=== PATIENT | male | born 1945 | race American Indian/Alaskan Native ===

== ENCOUNTER 2019-05-08 19:08 | Emergency (ER) | payer OTHER ==
[~2019-05-08] VITALS: Ht 175.3 cm; Wt 90.7 kg
[~2019-05-08 19:08] MED LIST: ASPI81CH PO; ATEN50 PO; ATOR20 PO; CLOP75 PO; GLIP2.5ER PO; METF850 PO; TAMS.4ER PO; TRAM50 PO
[2019-05-08 19:43] LABS: BASOPHILS ABSOLUTE AUTO 0.03 K/mm3 (0.00-0.23); BASOPHILS PERCENT AUTO 0 % (0-2); EOSINOPHILS ABSOLUTE AUTO 0.19 K/mm3 (0.00-0.68); EOSINOPHILS PERCENT AUTO 3 % (0-6); Hematocrit 25.3 % (37.0-53.0); Hemoglobin 8.1 g/dL (13.5-17.5); IMMATURE GRAN ABSOLUTE AUTO 0.07 K/mm3 (0.00-0.10); IMMATURE GRAN PERCENT AUTO 1 % (0-1); LYMPHOCYTES ABSOLUTE AUTO 2.01 K/mm3 (0.84-5.20); LYMPHOCYTES PERCENT AUTO 27 % (21-46); MONOCYTES ABSOLUTE AUTO 0.51 K/mm3 (0.16-1.47); MONOCYTES PERCENT AUTO 7 % (4-13); Mean Corpuscular HGB 36.3 pg (26.0-34.0); Mean Corpuscular Volume 114 fL (80-100); Mean Platelet Volume 10.5 fL (9.1-12.4); NEUTROPHILS ABSOLUTE AUTO 4.58 K/mm3 (1.96-9.15); NEUTROPHILS PERCENT AUTO 62 % (41-73); NRBC ABSOLUTE 0.05 K/mm3 (0.00-0.02); NRBC Auto 0.7 /100 WBC (0.0-0.2); Platelet Count 305 K/mm3 (150-400); RDW Standard Deviation 65.2 fL (35.1-46.3); Red Blood Cell Count 2.23 M/mm3 (4.30-5.90); White Blood Cell Count 7.39 K/mm3 (4.00-11.30)
[2019-05-08 19:57] LABS: Alanine Aminotransfer (ALT/SGP 69 U/L (12-78); Albumin, Blood 3.6 g/dL (3.4-5.0); Alk Phos 67 U/L (50-136); Anion Gap 7 mmol/L (6-16); Aspartate Aminotrans (AST/SGOT 62 U/L (12-37); Bilirubin, Total 0.2 mg/dL (0.1-1.0); Blood Urea Nitrogen 34 mg/dL (8-24); Bun/Creatinine Ratio 23.9 (12.0-20.0); CO2, Blood 28 mmol/L (21-32); Calcium, Blood 8.7 mg/dL (8.5-10.1); Chloride, Blood 104 mmol/L (98-108); Creatinine, Blood 1.42 mg/dL (0.60-1.20); Globulin, Blood 3.5 g/dL (2.2-4.0); Glomerular Filtration Rate 52 (60-); Glucose, Blood 117 mg/dL (70-99); Sodium, Blood 139 mmol/L (136-145); Total Protein, Blood 7.1 g/dL (6.4-8.2); Troponin I <0.015 ng/mL (0.000-0.040)
[2019-05-08] MEDS ORDERED: Ativan1 MG SL (22:17)
[2019-05-08] MEDS ORDERED: Protonix40 MG PO (22:17)
== END 2019-05-08 22:38 | disposition home or self-care (01) ==
LOC: ER 19:08
PROVIDERS: Emergency Medicine
DX: D62 Acute posthemorrhagic anemia (principal); F10.10 Alcohol abuse, uncomplicated; R20.0 Anesthesia of skin; Z79.899 Other long term (current) drug therapy; Z79.84 Long term (current) use of oral hypoglycemic drugs; Z79.82 Long term (current) use of aspirin; I11.0 Hypertensive heart disease with heart failure; E11.9 Type 2 diabetes mellitus without complications; J44.9 Chronic obstructive pulmonary disease, unspecified; I50.9 Heart failure, unspecified; Z87.891 Personal history of nicotine dependence
CPT/HCPCS: 70450; 70496; 70498; 73502; 80053; 82272; 84484; 85025; 93005; 93010; 96374-59; 99284-25; C9113; J7030; Q9967

== ENCOUNTER 2019-05-10 11:36 | Inpatient (IN) | payer OTHER ==
[~2019-05-10] VITALS: Ht 170.2 cm; Wt 94.3 kg
[~2019-05-10 11:36] MED LIST changes: +Ativan1 MG SL; +Protonix40 MG PO
[2019-05-10 12:04] LABS: BASOPHILS ABSOLUTE AUTO 0.01 K/mm3 (0.00-0.23); BASOPHILS PERCENT AUTO 0 % (0-2); EOSINOPHILS PERCENT AUTO 1 % (0-6); Hematocrit 25.2 % (37.0-53.0); Hemoglobin 8.1 g/dL (13.5-17.5); IMMATURE GRAN ABSOLUTE AUTO 0.06 K/mm3 (0.00-0.10); IMMATURE GRAN PERCENT AUTO 1 % (0-1); LYMPHOCYTES ABSOLUTE AUTO 1.09 K/mm3 (0.84-5.20); LYMPHOCYTES PERCENT AUTO 13 % (21-46); MONOCYTES ABSOLUTE AUTO 0.47 K/mm3 (0.16-1.47); MONOCYTES PERCENT AUTO 5 % (4-13); Mean Corpuscular HGB 36.8 pg (26.0-34.0); Mean Corpuscular HGB Conc 32.1 g/dL (31.5-36.5); Mean Corpuscular Volume 115 fL (80-100); Mean Platelet Volume 10.5 fL (9.1-12.4); NEUTROPHILS PERCENT AUTO 80 % (41-73); Platelet Count 306 K/mm3 (150-400); RDW Coefficient Variation 17.7 % (11.7-14.2); RDW Standard Deviation 71.6 fL (35.1-46.3); White Blood Cell Count 8.73 K/mm3 (4.00-11.30)
[2019-05-10 12:14] LABS: Albumin, Blood 3.5 g/dL (3.4-5.0); Albumin/Globulin Ratio 1.1 (0.8-1.8); Bilirubin, Total 0.3 mg/dL (0.1-1.0); Bun/Creatinine Ratio 21.4 (12.0-20.0); Calcium, Blood 8.7 mg/dL (8.5-10.1); Creatinine, Blood 1.45 mg/dL (0.60-1.20); Globulin, Blood 3.3 g/dL (2.2-4.0); Potassium, Blood 4.4 mmol/L (3.5-5.5); Total Protein, Blood 6.8 g/dL (6.4-8.2)
[2019-05-10] MEDS ORDERED: MUCINEX FAST-M180 M3 PO (12:44)
[2019-05-10] MEDS ORDERED: GEMF600 PO (12:56)
[2019-05-10] MEDS ORDERED: Aspir 8181 MG PO (15:14)
[2019-05-10] MEDS ORDERED: BUDE6HFA INH (15:14)
[2019-05-10] MEDS ORDERED: ATEN50 PO (15:14)
[2019-05-10] MEDS ORDERED: GLIP5 PO (15:15)
[2019-05-10] MEDS ORDERED: GABA300 PO (15:15)
[2019-05-10] MEDS ORDERED: B-121000 MC3 PO (15:15)
[2019-05-10] MEDS ORDERED: Metformin HCl850 MG PO (15:16)
[2019-05-10] MEDS ORDERED: Percocet 5-3251 EACH PO (15:16)
[2019-05-10] MEDS ORDERED: SERT25 PO (15:17)
[2019-05-10] MEDS ORDERED: MINIPRESS2 M1 PO (15:17)
[2019-05-10] MEDS ORDERED: TAMS.4ER PO (15:17)
[2019-05-10] MEDS ORDERED: MIRALAX17 GM PO (15:17)
[2019-05-10] MEDS ORDERED: TRAM50 PO (15:18)
[2019-05-10] MEDS ORDERED: Prinivil10 MG PO (15:24)
[2019-05-10] MEDS ORDERED: ALBU90OI INH (15:24)
[2019-05-10] MEDS ORDERED: Carbidopa-Levo1 EACH PO (15:25)
[2019-05-10] MEDS ORDERED: Fish Oil 10001000 MG PO (15:26)
--- NOTE | 2019-05-10 16:56 | NUR ---
ADMISSION/SHIFT SUMMARY PT ARRIVED TO THE UNIT, REPORT WAS RECEIVED BY EDGAR HOOK. ECHO STARTED AT BEDSIDE WITH TRANSFER, PATIENT ORIENTED TO UNIT, CALL LIGHT IN REACH. PERSONAL BELONGINGS AT BEDSIDE INCLUDING CELL PHONE. PATIENT APPEARS PALE, REPORTS ABDOMINAL PAIN AND NAUSEA, DRY HEAVING.
[2019-05-10 17:08] LABS: Troponin I <0.015 ng/mL (0.000-0.040)
[2019-05-10 17:11] LABS: Thyroid Stimulating Hormone 0.717 uIU/mL (0.360-4.800)
--- NOTE | 2019-05-10 17:20 | NUR ---
OK FOR PATIENT TO TAKE ORAL MEDS PER DR. LORD WHILE NPO UNTIL THE MORNING.
--- NOTE | 2019-05-10 17:28 | NUR ---
Echocardiogram completed.
[2019-05-10 18:29] LABS: Magnesium, Blood 1.9 mg/dL (1.6-2.4)
[2019-05-10 18:34] LABS: Thyroid Stimulating Hormone 0.501 uIU/mL (0.360-4.800)
[2019-05-10 18:51] LABS: Phosphorus, Blood 3.7 mg/dL (2.5-4.9)
[2019-05-11 05:16] LABS: Alanine Aminotransfer (ALT/SGP 20 U/L (12-78); Albumin, Blood 3.2 g/dL (3.4-5.0); Alk Phos 69 U/L (50-136); Anion Gap 6 mmol/L (6-16); Aspartate Aminotrans (AST/SGOT 45 U/L (12-37); Bilirubin, Total 0.4 mg/dL (0.1-1.0); Blood Urea Nitrogen 23 mg/dL (8-24); Bun/Creatinine Ratio 18.4 (12.0-20.0); CO2, Blood 25 mmol/L (21-32); Calcium, Blood 8.5 mg/dL (8.5-10.1); Chloride, Blood 108 mmol/L (98-108); Creatinine, Blood 1.25 mg/dL (0.60-1.20); Globulin, Blood 3.3 g/dL (2.2-4.0); Glomerular Filtration Rate >60 (60-); Glucose, Blood 147 mg/dL (70-99); Phosphorus, Blood 3.1 mg/dL (2.5-4.9); Potassium, Blood 3.9 mmol/L (3.5-5.5); Sodium, Blood 139 mmol/L (136-145); Total Protein, Blood 6.5 g/dL (6.4-8.2)
--- NOTE | 2019-05-11 05:30 | NUR ---
FOUNTAIN WAITRESS/WAITER SUMMARY PT A/O X4. DID NOT RECIEVE MUCH SLEEP TONIGHT. PT COMPLAINED OF PAIN IN EPIGASTRIC AREA. FENTANYL 50 MCG GIVEN WHICH HAS NOT HELPED. PT HAS NOT VOIDED TONIGHT. STAFF ASSISTED TO COMMODE BUT HE CANNOT PASS ANY URINE AND SAID IT HURTS TO BEAR DOWN. BLADDER SCAN OF 999ML. HOSPITALIST DR. HUMPHRIES CALLED. STRAIGHT ROGER ORDERED ONCE AND REPEAT SCAN IN 6 HOURS. PT STATED HE HAS NOT HAD A BM SINCE THE . DULCOLAX SUPP GIVEN.
[2019-05-11 06:33] LABS: Source, Urine Clean Catch
[2019-05-11 06:38] LABS: Bilirubin, Urine Neg (Neg); Blood, Urine 2+ (Neg); Glucose Qualitative, Urine Neg (Neg); Ketones, Urine Neg (Neg); Leukocyte Esterase, Urine Neg (Neg); Nitrite, Urine Neg (Neg); Protein, Urine 2+ (Neg); Urobilinogen, Urine NORM (Normal)
[2019-05-11 06:58] LABS: Appearance, Urine Clear (Clear); Color, Urine Yellow (P-Yellow)
[2019-05-11 06:59] LABS: Bacteria Rare /hpf; Red Blood Cells, Urine 0-2 /hpf (0-2); Squamous Epithelial Cells Rare /hpf (Few); White Blood Cells, Urine 0-2 /hpf (0-5)
[2019-05-11 10:03] LABS: BASOPHILS ABSOLUTE AUTO 0.01 K/mm3 (0.00-0.23); BASOPHILS PERCENT AUTO 0 % (0-2); EOSINOPHILS PERCENT AUTO 0 % (0-6); Hematocrit 25.2 % (37.0-53.0); Hemoglobin 8.3 g/dL (13.5-17.5); IMMATURE GRAN ABSOLUTE AUTO 0.07 K/mm3 (0.00-0.10); IMMATURE GRAN PERCENT AUTO 0 % (0-1); LYMPHOCYTES ABSOLUTE AUTO 0.66 K/mm3 (0.84-5.20); LYMPHOCYTES PERCENT AUTO 4 % (21-46); MONOCYTES ABSOLUTE AUTO 0.59 K/mm3 (0.16-1.47); MONOCYTES PERCENT AUTO 4 % (4-13); Mean Corpuscular HGB 37.2 pg (26.0-34.0); Mean Corpuscular HGB Conc 32.9 g/dL (31.5-36.5); Mean Corpuscular Volume 113 fL (80-100); Mean Platelet Volume 10.7 fL (9.1-12.4); NEUTROPHILS ABSOLUTE AUTO 15.35 K/mm3 (1.96-9.15); NEUTROPHILS PERCENT AUTO 92 % (41-73); Platelet Count 304 K/mm3 (150-400); RDW Coefficient Variation 17.2 % (11.7-14.2); RDW Standard Deviation 69.3 fL (35.1-46.3); Red Blood Cell Count 2.23 M/mm3 (4.30-5.90); White Blood Cell Count 16.68 K/mm3 (4.00-11.30)
[2019-05-11 13:51] LABS: Percent Saturation 2.8 % (20.0-50.0)
--- NOTE | 2019-05-11 19:12 | NUR ---
SHIFT SUMMARY PATIENT PULLED OUT IV THIS MORNING ACCIDENTALLY, NEW PERIPHERAL IV REPLACED. PATIENT DROWSY BUT AROUSABLE. NAUSEA RESOLVED WITH ZOFRAN, IMPROVED TODAY. ABDOMEN REMAINS TAUT, DISTENDED, AND PAINFUL. BLADDER SCANNED FOR ~700ML, NOTIFIED DR. LORD, VALENTINE CATHETER ORDERED AND PLACED. COUDE REQUIRED. CIWA SCORES UNDER 8 TODAY. PATIENT WITH SEVERE PAIN THIS AFTERNOON, MITIGATED BY FENTANYL IV. HAS NOT HAD A BM, GAVE MOM. PLACED ON CLEAR LIQUID DIET. DR. HOUSTON'S PLAN IS TO PERFORM EGD AND COLONOSCOPY.
--- NOTE | 2019-05-11 19:24 | NUR ---
Initial spiritual care note: I met Milo several months ago when his went home on hospice services. Today, Milo was very sleepy, therefore conversation was short. I prayed for him and his , [facility]. 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 He is deeply appreciaitive of spiritual support, and I amada continue to see Milo in coming days.
--- NOTE | 2019-05-12 04:40 | NUR ---
SHIFT SUMMARY PT HAS HAD NO ACUTE CHANGES THIS SHIFT, MEDICATED PER MAR FOR PAIN, PT STATED HE IS "HAVING W/D FROM TRAMADOL" WHICH HE TAKES TID, CAUSING HIS TREMORS, CIWA'S HAVE REMAINED 4 OR BELOW THIS SHIFT, PT SLEPT T/O SHIFT, HAS BEEN A SHAKY 1 ASSIST TO BSC, DOES NOT CALL APPROPIATELY, CALL LIGHT IN REACH, BED ALARM ON, PT SLEEPING AT THIS TIME, WILL CONT TO MONITOR UNTIL REPORT GIVEN TO DAY RN.
[2019-05-12 05:03] LABS: BASOPHILS ABSOLUTE AUTO 0.02 K/mm3 (0.00-0.23); BASOPHILS PERCENT AUTO 0 % (0-2); EOSINOPHILS ABSOLUTE AUTO 0.01 K/mm3 (0.00-0.68); EOSINOPHILS PERCENT AUTO 0 % (0-6); Hematocrit 21.6 % (37.0-53.0); Hemoglobin 6.9 g/dL (13.5-17.5); IMMATURE GRAN ABSOLUTE AUTO 0.13 K/mm3 (0.00-0.10); IMMATURE GRAN PERCENT AUTO 1 % (0-1); LYMPHOCYTES ABSOLUTE AUTO 0.86 K/mm3 (0.84-5.20); LYMPHOCYTES PERCENT AUTO 5 % (21-46); MONOCYTES ABSOLUTE AUTO 0.88 K/mm3 (0.16-1.47); MONOCYTES PERCENT AUTO 5 % (4-13); Mean Corpuscular HGB 35.8 pg (26.0-34.0); Mean Corpuscular HGB Conc 31.9 g/dL (31.5-36.5); Mean Corpuscular Volume 112 fL (80-100); Mean Platelet Volume 10.6 fL (9.1-12.4); NEUTROPHILS ABSOLUTE AUTO 15.66 K/mm3 (1.96-9.15); NEUTROPHILS PERCENT AUTO 89 % (41-73); Platelet Count 272 K/mm3 (150-400); RDW Coefficient Variation 16.6 % (11.7-14.2); RDW Standard Deviation 66.3 fL (35.1-46.3); Red Blood Cell Count 1.93 M/mm3 (4.30-5.90); White Blood Cell Count 17.56 K/mm3 (4.00-11.30)
[2019-05-12 06:12] LABS: Albumin, Blood 2.9 g/dL (3.4-5.0); Albumin/Globulin Ratio 0.9 (0.8-1.8); Bilirubin, Total 0.3 mg/dL (0.1-1.0); Bun/Creatinine Ratio 15.9 (12.0-20.0); Calcium, Blood 8.2 mg/dL (8.5-10.1); Creatinine, Blood 1.26 mg/dL (0.60-1.20); Globulin, Blood 3.1 g/dL (2.2-4.0); Phosphorus, Blood 2.5 mg/dL (2.5-4.9); Potassium, Blood 3.6 mmol/L (3.5-5.5)
[2019-05-12 09:49] LABS: Amylase, Blood 744 U/L (25-115)
--- NOTE | 2019-05-12 11:46 | NUR ---
REPORT CALLED TO SLICE PLUG CUTTER OPERATOR HELPER. ISTRATE ORDERED IN HOUSE TRANSFER TO ICU FOR CLOSER MONITORING. CHARGE NURSE IS HERE AT THE BEDSIDE. ALL PERSONAL BELONGINGS SENT WITH PT.
--- NOTE | 2019-05-12 12:00 | NUR ---
ASSUMED CARE: PT TRANSFERRED FROM [facility]. REPORT RECIEVED FROM EDGAR VAZ. PT WITH BLOOD INFUSING UPON ARRIVAL. LUNG SOUNDS CLEAR, AWAKE, TALKING TO STAFF, ALERT AND ORIENTED. BOWEL SOUNDS HYPOACTIVE. VALENTINE CATH IN PLACE. HYPOTENSIVE BUT STABLE AT THIS TIME.
--- NOTE | 2019-05-12 16:00 | NUR ---
CALL TO DR LORD TO MAKE AWARE THAT BLOOD PRESSURES WERE STILL SOFT. ORDERS FOR FLUID BOLUS AFTER BLOOD COMPLETED.
--- NOTE | 2019-05-12 17:40 | NUR ---
SHIFT SUMMARY: PT RECIEVED 2 UNITS PRBCS AND A BOLUS OF NS, WELL NS AT 200/HR AND BANANA BAG AT 125/HR. DIASTOLIC STILL ON THE LOWER SIDE OF NORMAL BUT MAPS HAVE BEEN IN 60S ON AVERAGE. DR LORD CAME TO CHECK ON PT AND SHOWED HIM PT'S DATA. NO NEW ORDERS. DR HOUSTON CAME TO SEE PT AND PLANS FOR EGD IN AM. DR LORD AWARE. PT RESTING IN BED. NO ACUTE NEEDS OR CONCERNS AT THIS TIME.
[2019-05-12 17:46] LABS: BASOPHILS ABSOLUTE AUTO 0.02 K/mm3 (0.00-0.23); BASOPHILS PERCENT AUTO 0 % (0-2); EOSINOPHILS ABSOLUTE AUTO 0.01 K/mm3 (0.00-0.68); EOSINOPHILS PERCENT AUTO 0 % (0-6); Hematocrit 26.4 % (37.0-53.0); Hemoglobin 8.7 g/dL (13.5-17.5); IMMATURE GRAN PERCENT AUTO 1 % (0-1); LYMPHOCYTES ABSOLUTE AUTO 0.76 K/mm3 (0.84-5.20); LYMPHOCYTES PERCENT AUTO 4 % (21-46); MONOCYTES ABSOLUTE AUTO 0.88 K/mm3 (0.16-1.47); MONOCYTES PERCENT AUTO 5 % (4-13); Mean Corpuscular HGB 34.3 pg (26.0-34.0); Mean Platelet Volume 10.7 fL (9.1-12.4); NEUTROPHILS ABSOLUTE AUTO 16.22 K/mm3 (1.96-9.15); NEUTROPHILS PERCENT AUTO 90 % (41-73); NRBC ABSOLUTE 0.02 K/mm3 (0.00-0.02); NRBC Auto 0.1 /100 WBC (0.0-0.2); Platelet Count 260 K/mm3 (150-400); RDW Coefficient Variation 21.8 % (11.7-14.2); RDW Standard Deviation 83.3 fL (35.1-46.3); Red Blood Cell Count 2.54 M/mm3 (4.30-5.90); White Blood Cell Count 17.99 K/mm3 (4.00-11.30)
[2019-05-12 17:47] LABS: Mean Corpuscular Volume 104 fL (80-100)
[2019-05-12 18:08] LABS: Alanine Aminotransfer (ALT/SGP 26 U/L (12-78); Albumin, Blood 2.6 g/dL (3.4-5.0); Albumin/Globulin Ratio 0.8 (0.8-1.8); Alk Phos 56 U/L (50-136); Anion Gap 6 mmol/L (6-16); Aspartate Aminotrans (AST/SGOT 38 U/L (12-37); Blood Urea Nitrogen 20 mg/dL (8-24); CO2, Blood 24 mmol/L (21-32); Chloride, Blood 108 mmol/L (98-108); Creatinine, Blood 1.11 mg/dL (0.60-1.20); Globulin, Blood 3.3 g/dL (2.2-4.0); Glomerular Filtration Rate >60 (60-); Glucose, Blood 184 mg/dL (70-99); Potassium, Blood 3.6 mmol/L (3.5-5.5); Sodium, Blood 138 mmol/L (136-145); Total Protein, Blood 5.9 g/dL (6.4-8.2)
--- NOTE | 2019-05-12 20:00 | NUR ---
ASSUMED CARE OF PT AT 1915. REPORT RECEIVED AT BEDSIDE. PT PRESENTS IN BED IN NO APPARENT DISTRESS. HAS BEEN PREVIOUSLY MEDICATED WITH LIBRIUM. DISCUSSED MEDICATIONS WITH PT. NOTED BLOOD PRESSURES REMAIN WITH MAP > 60. HAS BEEN MEDICATED WITH PO PAIN MEDICATION WHICH HE STATES IS HELPING WITH ABDOMINAL PAIN. PT MADE AWARE AND UNDERSTANDS THAT HE WILL BE NPO AFTER MIDNIGHT PENDING PROCEDURE TOMORROW. WILL REVIEW CHART AND PLAN OF CARE FOR THIS PT.
--- NOTE | 2019-05-12 23:57 | NUR ---
PT HAS BEEN UP OUT OF BED WITH ONE PERSON ASSIST TO ATTEMPT BM. PT STATES THAT HE WAS UNSUCCESSFUL. REMAINS WITH BLOOD PRESSURES WNL. WILL CONTINUE TO MONITOR.
--- NOTE | 2019-05-13 01:31 | NUR ---
PT RESTING IN BED AT THIS TIME. DOES HAVE OXYGEN DESATURATION AT TIMES TO 88 PERCENT. HAS A SLEEP APNEA TYPE RESPIRATORY PATTERM. PT QUICKLY HAS RETURN TO > 90 PERCENT SATURATION. WILL HOLD OFF ON ADDING SUPPLEMENTAL OXYGEN AT THIS TIME.
--- NOTE | 2019-05-13 03:20 | NUR ---
PT COMPLAINS OF RIGHT ABDOMEN PAIN WHICH HE STATES RADIATES TO THE BACK. MEDICATED PT WITH 50 MCG FENTANYL. HAVE ALSO MEDICATED PT EARLIER WITH 25 MG LIBRIUM. PT STATES THAT HE IS HAVING SOME MILD HALLUCINATIONS. SEE CIWA SCORING FOR VALUES. WILL CONTINUE TO MONITOR PT.
[2019-05-13 03:57] LABS: BASOPHILS ABSOLUTE AUTO 0.03 K/mm3 (0.00-0.23); BASOPHILS PERCENT AUTO 0 % (0-2); EOSINOPHILS ABSOLUTE AUTO 0.03 K/mm3 (0.00-0.68); EOSINOPHILS PERCENT AUTO 0 % (0-6); Hematocrit 25.5 % (37.0-53.0); Hemoglobin 8.1 g/dL (13.5-17.5); IMMATURE GRAN ABSOLUTE AUTO 0.09 K/mm3 (0.00-0.10); IMMATURE GRAN PERCENT AUTO 1 % (0-1); LYMPHOCYTES ABSOLUTE AUTO 0.91 K/mm3 (0.84-5.20); LYMPHOCYTES PERCENT AUTO 6 % (21-46); MONOCYTES ABSOLUTE AUTO 0.89 K/mm3 (0.16-1.47); MONOCYTES PERCENT AUTO 5 % (4-13); Mean Corpuscular HGB 32.9 pg (26.0-34.0); Mean Corpuscular HGB Conc 31.8 g/dL (31.5-36.5); Mean Corpuscular Volume 104 fL (80-100); Mean Platelet Volume 10.8 fL (9.1-12.4); NEUTROPHILS ABSOLUTE AUTO 14.61 K/mm3 (1.96-9.15); NEUTROPHILS PERCENT AUTO 88 % (41-73); Platelet Count 262 K/mm3 (150-400); RDW Coefficient Variation 22.5 % (11.7-14.2); Red Blood Cell Count 2.46 M/mm3 (4.30-5.90); White Blood Cell Count 16.56 K/mm3 (4.00-11.30)
[2019-05-13 04:13] LABS: Bun/Creatinine Ratio 14.5 (12.0-20.0); Calcium, Blood 7.8 mg/dL (8.5-10.1); Creatinine, Blood 1.31 mg/dL (0.60-1.20); Magnesium, Blood 2.1 mg/dL (1.6-2.4); Potassium, Blood 3.8 mmol/L (3.5-5.5)
--- NOTE | 2019-05-13 07:32 | NUR ---
ONCOMING NOTE REPORT RECIEVED FROM EDGAR FRANCOIS. BEDSIDE ROUNDING DONE. PT RESTING WITH EYES CLOSED, SNORING. NO S/SX DISTRESS NOTED. VSS, SEE FLOWSHEET. NS RUNNING AT 200ML/HR PER ORDERS. PER REPORT PT HAS BEEN NPO SINCE MIDNIGHT. PLAN FOR SCOPE TODAY, UNKNOWN TIME. BED IN LOWEST POSITION, SIDE RAILS RAISED. CALL LIGHT IN REACH. WILL CONT TO MONITOR PT.
--- NOTE | 2019-05-13 09:10 | NUR ---
CALL FROM DR HOUSTON CALL FROM DR HOUSTON FOR UPDATE. UPDATE GIVEN. PLAN FOR EGD LATER THIS AFTERNOON PER DR HOUSTON. OTHERWISE NO CHANGES TO PLAN OF CARE AT THIS TIME.
--- NOTE | 2019-05-13 10:56 | NUR ---
PT TO DAY SURGERY RETURNED FROM BREAK TO FIND PT OUT OF ROOM. CALLED DAY SURGERY. DAY SURGERY RN, JORGE A, HAD GRABBED PT AND TAKEN HIM FOR HIS EGD. PER JORGE A, EDGAR HOUSTON VERBALIZED INTENTION OF CHANGING PT STATUS TO ALLOW FOR TRANSFER TO THE DAY SURGERY DEPT RATHER THAN PERFORM BEDSIDE IN ICU.
--- NOTE | 2019-05-13 11:11 | NUR ---
CALL TO DR LORD CALL TO DR LORD PROVIDING UPDATE. DR LORD WITHOUT ANY FURTHER QUESTIONS AND NO CHANGES TO PLAN OF CARE AT THIS TIME.
--- NOTE | 2019-05-13 11:15 | NUR ---
05/13/19 1115 Maxwell Urias See Anesthesia record. Bite Block Placed3-LEAD EKG REVIEWED WITH PHYSICIAN PRIOR TO START OF PROCEDURE.MONITOR INTACT WITH CONTINUOUS PULSE OXIMETRY AND INTERMITTENT BP.O2 VIA N/C INTACT THROUGHOUT SEDATION/PROCEDURE.
--- NOTE | 2019-05-13 11:51 | NUR ---
RETURN FROM DAY SURGERY PT RETURNED TO ICU 8 FROM DAY SURGERY FOLLOWING EGD. PER REPORT FROM EDGAR GEORGE PT RECEIVED 100ML NS TOTAL AND PROPOFOL FOR SEDATION, WHICH WAS MANAGED BY AN ANESTHESIOLOGIST. PT FOUND TO HAVE ESOPHAGEAL EROSION, NO ADDITIONAL REPORT PROVIDED BY EDGAR GEORGE. UPON ARRIVAL BACK TO UNIT PT WAS TRANSFERRED BACK INTO BED AND REPOSITIONED TO COMFORT. PT OPENS EYES TO VERBAL STIMULI THEN RETURNS TO RESTING WITH EYES CLOSED AND SNORING. VSS, SEE FLOWSHEET. NO S/SX DISTRESS NOTED. VALENTINE CATHETER REMAINS PATENT AND DRAINING TO GRAVITY. CALL LIGHT IN REACH. WILL CONT TO MONITOR PT.
--- NOTE | 2019-05-13 12:03 | NUR ---
PT STATUS UPDATE PER DR HOUSTON PT OKAY TO CHANGE STATUS TO PCU IF OKAY BY HOSPITALIST. PLAN TO CALL DR LORD.
[2019-05-13 13:07] LABS: A/G RATIO 1.4 (0.7-1.7); ALBUMIN 3.4 g/dL (2.9-4.4); ALPHA-1-GLOBULIN 0.3 g/dL (0.0-0.4); ALPHA-2-GLOBULIN 0.7 g/dL (0.4-1.0); GAMMA GLOBULIN 0.6 g/dL (0.4-1.8); GLOBULIN, TOTAL 2.6 g/dL (2.2-3.9); IMMUNOGLOBULIN A, QN, SERUM 223 mg/dL (61-437); IMMUNOGLOBULIN G, QN, SERUM 683 mg/dL (700-1600); IMMUNOGLOBULIN M, QN, SERUM 59 mg/dL (15-143); M-SPIKE Not Observed g/dL (Not Observed)
--- NOTE | 2019-05-13 18:33 | NUR ---
SHIFT SUMMARY PT RESTING IN BED WITH EYES CLOSED, SNORING. NO S/SX DISTRESS NOTED. BED IN LOWEST POSITION, CALL LIGHT IN REACH. NO ACUTE CHANGES, VSS T/O SHIFT. PT C/O ABD PAIN TWICE, MEDICATED WITH PERCOCET PER ORDERS FIRST AND THEN WITH FENTANYL PER ORDERS AT SECOND C/O PAIN. EGD DONE. PT W/O STOOL THIS SHIFT. VALENTINE CATHETER REMAINS PATENT, DRAINING TO GRAVITY. NS REMAINS RUNNING AT 200ML/HR PER ORDERS. BANANA BAG INFUSING AT THIS TIME PER ORDERS. CIWA BELOW 8 T/O SHIFT. POSSIBLE CHANGE TO PCU STATUS TOMORROW WITH DIET UPGRADE.
--- NOTE | 2019-05-13 23:04 | NUR ---
ASSUMED PT CARE AT 1900 PT LYING IN BED C/O 9/10 ABDOMINAL PAIN; GUARDING ABDOMEN. DUE FOR PAIN MEDICATIONS AT 1915. PT APPEARS ALERT AND ORIENTED AND ABLE TO MAKE NEEDS KNOWN. NS INFUSING AT 200MLS/HR. BANANA BAG INFUSING. VALENTINE CATHETER NOTED TO BE PATENT AND DRAINING TO GRAVITY. CALL LIGHT WITHIN REACH. BEDSIDE REPORT GIVEN.
[2019-05-14 04:22] LABS: BASOPHILS ABSOLUTE AUTO 0.02 K/mm3 (0.00-0.23); BASOPHILS PERCENT AUTO 0 % (0-2); EOSINOPHILS ABSOLUTE AUTO 0.14 K/mm3 (0.00-0.68); EOSINOPHILS PERCENT AUTO 1 % (0-6); Hematocrit 26.3 % (37.0-53.0); Hemoglobin 8.3 g/dL (13.5-17.5); IMMATURE GRAN ABSOLUTE AUTO 0.09 K/mm3 (0.00-0.10); IMMATURE GRAN PERCENT AUTO 1 % (0-1); LYMPHOCYTES ABSOLUTE AUTO 0.86 K/mm3 (0.84-5.20); LYMPHOCYTES PERCENT AUTO 6 % (21-46); MONOCYTES PERCENT AUTO 5 % (4-13); Mean Corpuscular HGB 33.1 pg (26.0-34.0); Mean Corpuscular HGB Conc 31.6 g/dL (31.5-36.5); Mean Corpuscular Volume 105 fL (80-100); NEUTROPHILS ABSOLUTE AUTO 12.52 K/mm3 (1.96-9.15); NEUTROPHILS PERCENT AUTO 87 % (41-73); Platelet Count 312 K/mm3 (150-400); RDW Coefficient Variation 21.7 % (11.7-14.2); RDW Standard Deviation 83.6 fL (35.1-46.3); Red Blood Cell Count 2.51 M/mm3 (4.30-5.90); White Blood Cell Count 14.33 K/mm3 (4.00-11.30)
[2019-05-14 04:44] LABS: Alanine Aminotransfer (ALT/SGP 8 U/L (12-78); Albumin, Blood 2.4 g/dL (3.4-5.0); Albumin/Globulin Ratio 0.7 (0.8-1.8); Alk Phos 52 U/L (50-136); Anion Gap 6 mmol/L (6-16); Aspartate Aminotrans (AST/SGOT 25 U/L (12-37); Bilirubin, Total 0.4 mg/dL (0.1-1.0); Blood Urea Nitrogen 19 mg/dL (8-24); Bun/Creatinine Ratio 15.4 (12.0-20.0); CO2, Blood 23 mmol/L (21-32); Calcium, Blood 7.9 mg/dL (8.5-10.1); Chloride, Blood 113 mmol/L (98-108); Creatinine, Blood 1.23 mg/dL (0.60-1.20); Globulin, Blood 3.5 g/dL (2.2-4.0); Glomerular Filtration Rate >60 (60-); Glucose, Blood 143 mg/dL (70-99); Potassium, Blood 3.8 mmol/L (3.5-5.5); Sodium, Blood 142 mmol/L (136-145); Total Protein, Blood 5.9 g/dL (6.4-8.2)
--- NOTE | 2019-05-14 06:05 | NUR ---
END OF SHIFT SUMMARY PT HAS REMAINED PLEASANT AND COOPERATIVE WITH CARES T/O SHIFT. CIWA SCORES HAVE BEEN LESS THAN 8. PT HAS A BASELINE TREMOR D/T PARKINSONS DX AND C/O MILD HEADACHE AT BEGINNING OF SHIFT THAT HAS SINCE RESOLVED. PT HAS BEEN HEMODYNAMICALLY STABLE THIS SHIFT; SEE FLOWSHEET FOR VS. NO STOOLS THIS SHIFT; HOWEVER, PT HASN'T HAD ONE SINCE ADMIT. VALENTINE CATH IS PATENT AND DRAINING DARK, NEGRA COLORED URINE TO GRAVITY; 650CC OUT THIS SHIFT. DRINKING PO FLUIDS ADEQUATELY. C/O FREQUENT ABDOMINAL PAIN, WELL CHRONIC BACK PAIN. MEDICATED WITH PRN FENTANYL ABOUT EVERY 2-3 HOURS PER ORDERS, WELL PERCOCET X2 THIS SHIFT PER ORDERS; BOTH APPEAR EFFECTIVE FOR PAIN. NS INFUSING AT 200MLS/HR. CALL LIGHT WITHIN REACH; PT IS ABLE TO MAKE HIS NEEDS KNOWN. WILL CONTINUE TO MONITOR UNTIL REPORT IS HANDED OFF TO ONCOMING RN.
--- NOTE | 2019-05-14 07:14 | NUR ---
ONCOMING SHIFT NOTE REPORT RECEIVED FROM EDGAR CACERES. BEDSIDE ROUNDING DONE. PT RESTING IN BED, REPOSITIONING SELF FOR COMFORT. PT ALERT AND ORIENTED, COOPERATIVE WITH CARE. PT C/O 610 PAIN TO ABD, PLAN TO MEDICATE PER ORDERS. VSS, SEE FLOWSHEET. PER REPORT PT WITHOUT ANY ACUTE CHANGES IN THE NIGHT, MOSTLY ATTEMPTED TO MANAGE PAIN. BED IN LOWEST POSITION, SIDE RAILS RAISED. CALL LIGHT IN REACH. WILL CONT TO MONITOR PT.
--- NOTE | 2019-05-14 07:34 | NUR ---
ABD US US TECH AT BEDSIDE TO COMPLETE ABD US ORDERED PER DR LORD.
--- NOTE | 2019-05-14 09:18 | NUR ---
DR LORD ROUNDS DR LORD ROUNDED, UPDATED ON PT STATUS. ORDERS TO REDUCE NS RATE FROM 200ML/HR TO 75ML/HR. PER DR LORD OKAY FOR PT TO UPGRADE DIET AND CHANGE STATUS TO MEDICAL WITHOUT TELEMETRY AFTER 2 HOURS. POSSIBLE D/C TOMORROW. NO FURTHER CHANGES TO PLAN OF CARE AT THIS TIME. WILL CONT TO MONITOR PT.
--- NOTE | 2019-05-14 10:17 | NUR ---
CALL FOR REPORT CALL TO RM 329 RN IN ORDER TO GIVE REPORT. EDGAR PALOMINO UNABLE TO TAKE REPORT AT THIS TIME, WILL CALL WHEN ABLE.
--- NOTE | 2019-05-14 10:55 | NUR ---
TRANSFER NOTE REPORT GIVEN TO EDGAR PALOMINO. PT TO TRANSFER TO MEDICAL FLOOR ROOM 329. PT ASSISTED TO STANDING POSITION AND TRANFER TO WHEELCHAIR USING FWW. UPON STANDING PT REPORTED DIZZINESS, STEADY ON FEET. PT REPORTED FEELING "GOOD TO STAND". NOTIFIED PT THAT PHYSICAL THERAPY WOULD BE TRACKING HIM DOWN TODAY TO WORK WITH HIM WHICH HE WAS GRATEFUL FOR. PT REPORTS IMPROVEMENT IN ABD PAIN. VALENTINE CATHETER D/C PER ORDERS WITHOUT EVENT. VSS PRIOR TO LEAVING UNIT, SEE FLOWSHEET. NS AT 75ML/HR WITH ABX CONTINUED INFUSING DURING TRANSFER. NO S/SX DISTRESS NOTED PT LEFT UNIT. ALL BELONGINGS WITH PT UPON TRANSFER.
--- NOTE | 2019-05-14 11:43 | NUR ---
PT ARRIVED AT 1055 VIA WHEELCHAIR. PT WAS ABLE TO TRANSFER OVER TO RECLINER WITH WALKER AND STANDBY ASSIST. PT PLEASANT WITH NO DISTRESS NOTED. WILL CONTINUE TO MONITOR.
--- NOTE | 2019-05-14 16:44 | NUR ---
PT HAS BEEN DOING WELL SINCE TRANFER. PT HAS BEEN TREATED X3 PER EMAR FOR BACK PAIN. PT HAS BEEN IN AND OUT OF CHAIR TO BED. PT IS A STANDBY ASSIST TO MOVE FROM CHAIR TO BED AND DOES WELL. PT SEEMS TO BE COMFORTABLE TAKING NAPS LONG HIS PAIN IS LOWER. PT CALLS APPROPRIATELLY. BED IN LOWEST POSITION AND CALL LIGHT WITHIN REACH. WILL CONTINUE TO MONITOR.
[2019-05-15 06:21] LABS: BASOPHILS ABSOLUTE AUTO 0.03 K/mm3 (0.00-0.23); BASOPHILS PERCENT AUTO 0 % (0-2); EOSINOPHILS ABSOLUTE AUTO 0.17 K/mm3 (0.00-0.68); EOSINOPHILS PERCENT AUTO 2 % (0-6); Hematocrit 25.5 % (37.0-53.0); Hemoglobin 8.1 g/dL (13.5-17.5); IMMATURE GRAN ABSOLUTE AUTO 0.05 K/mm3 (0.00-0.10); IMMATURE GRAN PERCENT AUTO 1 % (0-1); LYMPHOCYTES PERCENT AUTO 7 % (21-46); MONOCYTES ABSOLUTE AUTO 0.54 K/mm3 (0.16-1.47); MONOCYTES PERCENT AUTO 5 % (4-13); Mean Corpuscular HGB 32.8 pg (26.0-34.0); Mean Corpuscular HGB Conc 31.8 g/dL (31.5-36.5); Mean Corpuscular Volume 103 fL (80-100); Mean Platelet Volume 10.6 fL (9.1-12.4); NEUTROPHILS ABSOLUTE AUTO 9.52 K/mm3 (1.96-9.15); NEUTROPHILS PERCENT AUTO 86 % (41-73); Platelet Count 328 K/mm3 (150-400); RDW Standard Deviation 75.8 fL (35.1-46.3); Red Blood Cell Count 2.47 M/mm3 (4.30-5.90); White Blood Cell Count 11.11 K/mm3 (4.00-11.30)
[2019-05-15 06:43] LABS: Alanine Aminotransfer (ALT/SGP 13 U/L (12-78); Albumin, Blood 2.3 g/dL (3.4-5.0); Albumin/Globulin Ratio 0.6 (0.8-1.8); Alk Phos 53 U/L (50-136); Anion Gap 6 mmol/L (6-16); Aspartate Aminotrans (AST/SGOT 23 U/L (12-37); Bilirubin, Total 0.4 mg/dL (0.1-1.0); Blood Urea Nitrogen 18 mg/dL (8-24); Bun/Creatinine Ratio 15.5 (12.0-20.0); CO2, Blood 23 mmol/L (21-32); Calcium, Blood 8.3 mg/dL (8.5-10.1); Chloride, Blood 111 mmol/L (98-108); Creatinine, Blood 1.16 mg/dL (0.60-1.20); Globulin, Blood 3.8 g/dL (2.2-4.0); Glomerular Filtration Rate >60 (60-); Glucose, Blood 149 mg/dL (70-99); Potassium, Blood 3.4 mmol/L (3.5-5.5); Sodium, Blood 140 mmol/L (136-145); Total Protein, Blood 6.1 g/dL (6.4-8.2)
--- NOTE | 2019-05-15 07:10 | NUR ---
RECVD REPORT FROM PREVIOUS SHIFT RN ELIZABETH. PT SLEEPING, CALL LIGHT WITHIN REACH, BED RAILS UP X 2, BED IN LOWEST POSITION
--- NOTE | 2019-05-15 07:27 | NUR ---
05/15/19 0530 MEDICATED SEVERAL TIMES FOR GENERAL ABDOMINAL PAIN. DENIES ANY NAUSEA OR OTHER S/S. VITALS STABLE. SLEPT WELL AFTER ATIVAN PO GIVEN FOR ANXIETY AND INSOMNIA LAST EVENING. VOIDING WELL BUT DOES HAVE URGENCY WITH VOIDINGS.
--- NOTE | 2019-05-15 10:23 | NUR ---
DR ROSARIO ROUNDING ON PT
--- NOTE | 2019-05-15 14:54 | NUR ---
PT REQUESTS TO VISIT WITH PASTORAL CARE, THIS RN REQUESTED THIS OF WATER CHEMIST. PALLIATIVE CARE TO SEE PT. PT EXPRESSED HIS CONCERN OVER WHO WOULD HELP HIM MANAGE HIS DISCHARGE INSTRUCTIONS HIS IS ON HOSPICE. SIGHT MOUNTER CONSULT IN
--- NOTE | 2019-05-15 15:08 | NUR ---
pt resting review of xuan management with nursing. may have to change to patch to bypass gut. will send kaitlynn to see patient.
--- NOTE | 2019-05-15 18:09 | NUR ---
met with patient he is anxious about future care of his . we reviewed possible plans he really feels best speaking with erik glover will update her on his needs. Denied pain pt stoic and slightly labored but staes he is comfortable.
--- NOTE | 2019-05-15 18:20 | NUR ---
shift summary: vss, no acute changes. abdomen remained distended and painful, medicated per apr with relief to 3-/. after PO intake at lunch, pt states pain increased, changed to full liquid diet and provided with analgesia per mar. pt up to chair for lunch/dinner this shift. pt with elevated temperature hovering around 100, checked at 99.7 approx 1600, 100 at 1700, medicated per mar with remained 100. pt states he is very weak, can barely keep his eyes open, appears to have some SOB. SPO2 >90%, BP stable. Notifed provider of change/weakness/fever, awaiting orders. pt requested social media editor consult, visit for pastoral care. Both these were ordered.
--- NOTE | 2019-05-16 07:38 | NUR ---
05/16/19 0600 PT SLEEPING AFTER PAIN MED GIVEN. HAS SLEPT OM AND OFF DUE TO PAIN/COMFORT ISSUES. VITALS STABLE. PT WEAKER THIS SHIFT THAN NIGHT PRIOR. ASSISTED WITH ADL'S.
[2019-05-16 08:40] LABS: Hematocrit 25.7 % (37.0-53.0); Hemoglobin 8.4 g/dL (13.5-17.5); Mean Corpuscular HGB 32.8 pg (26.0-34.0); Mean Corpuscular HGB Conc 32.7 g/dL (31.5-36.5); Mean Corpuscular Volume 100 fL (80-100); Mean Platelet Volume 10.6 fL (9.1-12.4); Platelet Count 312 K/mm3 (150-400); RDW Coefficient Variation 19.1 % (11.7-14.2); RDW Standard Deviation 70.5 fL (35.1-46.3); Red Blood Cell Count 2.56 M/mm3 (4.30-5.90); White Blood Cell Count 9.47 K/mm3 (4.00-11.30)
[2019-05-16 08:54] LABS: Anion Gap 8 mmol/L (6-16); Blood Urea Nitrogen 16 mg/dL (8-24); Bun/Creatinine Ratio 13.2 (12.0-20.0); CO2, Blood 24 mmol/L (21-32); Calcium, Blood 8.2 mg/dL (8.5-10.1); Chloride, Blood 110 mmol/L (98-108); Creatinine, Blood 1.21 mg/dL (0.60-1.20); Glomerular Filtration Rate >60 (60-); Glucose, Blood 147 mg/dL (70-99); Potassium, Blood 3.9 mmol/L (3.5-5.5); Sodium, Blood 142 mmol/L (136-145)
--- NOTE | 2019-05-16 17:44 | NUR ---
PT IS AO AND COOPERATIVE OF CARE. PT HAD MUCH MORE PAIN IN THE AM AND THIS HAS BECOME MORE CONTROLLED THE DAY PROGRESSES. PT HAS BEEN NPO AND WILL CONTINUE AT THIS TIME EXCEPT FOR MEDICATIONS. FLUIDS RUNNING AT 75ML AT THIS TIME AND BED ALARM IN PLACE. PT CAN CALL APPRORIATELY, BUT CAN BE IMPULSIVE IF HE WANTS TO. PT HAS BEEN UP TO CHAIR AND IS A ONE PERSON ASSIST WITH GAITBELT TO AMBULATE. PT STATES HE IS FEELING MUCH BETTER COMPARED TO YESTERDAY. WILL CONTINUE TO MONITOR.
--- NOTE | 2019-05-16 19:03 | NUR ---
Routine spiritual care note: Milo was very sleepy today and had trouble staying awake for long. Provided prayer and encouragement. I will remain available.
--- NOTE | 2019-05-17 03:52 | NUR ---
SHIFT SUMMARY ADMITTED FOR NEAR SYNCOPE. FOUND TO HAVE PANCREATITIS. DNR CODE. EGD DISCOVERED GARCIA'S ESOPHAGUS. NPO EXCEPT FOR MEDS ACCORDING TO NURSING HANDOFF, PLAN IS TO ADVANCE THE DIET SLOWLY IT WAS ADVANCED TOO FAST PREVIOUSLY (RESULTING IN PAIN AND NAUSEA). I DID MEDICATE FOR PAIN ONE TIME DURING THIS SHIFT. HE DENIED NAUSEA. HIS IS BEDRIDDEN ON HOSPICE CARE AT HOME. HE IS ON RA, ACHS CHEMSTICKS, NORMALLY ASPIRATION PRECAUTIONS, 1 PERSON ASSIST W/GAITBELT, CAN BE IMPULSIVE. HX: QUIT DRINKING 1 WEEK AGO, BPH, COPD, CHF, HTN, DEPRESSION, NEUROPATHY, CHRONIC PAIN, PTSD, AGENT ORANGE EXPOSURE IN [place].
--- NOTE | 2019-05-17 17:34 | NUR ---
SHIFT SUMMARY PT ALERT AND ORIENTED THIS SHIFT. PT DENIES FURTHER PAIN IN HIS ABDOMEN. PT ADVANCED TO FULL LIQUID DIET THIS SHIFT, PT STATES NO PAIN AFTER EATING LUNCH. PT WORKED WITH P/T THIS SHIFT AND AMBULATED INTO THE COLVIN, STANDBY ASSIST WITH FWW. PT FORGETFUL TO USE CALL-LIGHT WHEN TRANSFERING FROM BED TO CHAIR OR CHAIR TO BED. PT USES CALL-LIGHT AND URINAL APPROPRIATELY. PT CURRENTLY UP IN CHAIR EATING DINNER.
--- NOTE | 2019-05-17 22:21 | NUR ---
74 year old Male with panceratitis and ETOH withdrawl complains of anxiety and CIWA score 13. Medicated with po librium 50 mg. PT tolerating full liquids fair. denies increased pain tonight with oral intake. 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 He may be DC soome with home health services. PT's SI of 15 years is currently on Home Hospice and PT says he feels safe to DC home with support.
[2019-05-18 05:15] LABS: Anion Gap 7 mmol/L (6-16); Blood Urea Nitrogen 16 mg/dL (8-24); Bun/Creatinine Ratio 14.7 (12.0-20.0); CO2, Blood 28 mmol/L (21-32); Calcium, Blood 8.5 mg/dL (8.5-10.1); Chloride, Blood 107 mmol/L (98-108); Creatinine, Blood 1.09 mg/dL (0.60-1.20); Glomerular Filtration Rate >60 (60-); Glucose, Blood 205 mg/dL (70-99); Potassium, Blood 3.6 mmol/L (3.5-5.5); Sodium, Blood 142 mmol/L (136-145)
--- NOTE | 2019-05-18 05:51 | NUR ---
PT medicated x 1 for co ETOH withdrawl. Librium helpful to promote rest relaxation. PT on room air part of NOC but sats less than 90% this AM 2 l NC applied. PT has loose productive cough with thick yellow sputum. Exsmoker. PT is weak needs assist with ADLS. 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 He says he had been changing attends and colostomy bags with colostomy care. PT is tolerating full liquid diet. Soft food offered. Denies pain had lt hip xray yesterday showed some degenerative arthritis. PT wants assist to provide safe discharge , says discharge planners are exploring support from [facility].
--- NOTE | 2019-05-18 14:47 | NUR ---
DISCHARGE NOTE PT DISCHARGED TO HOME WITH HOME HEALTH. PT AMBULATED WITH P/T IN THE COLVIN THIS SHIFT. PT WORKED WITH OT THIS SHIFT. PT STANDBY ASSIST TO BATHROOM WITH FWW THIS SHIFT. PT HAD A BM EARLY THIS SHIFT. PT ADVANCED TO REGULAR ADA DIET WITHOUT ISSUES FOR LUNCH. PT TRANSPORTED HOME WITH FRIEND. PT PROVIDED DISCHARGE INSTRUCTIONS WITH NO QUESTIONS AT THIS TIME.
== END 2019-05-18 14:16 | disposition home health service (06) | DRG 439 ==
LOC: ER 11:36 → ICUE 11:37 → MEDS 11:37 → ICUE 05-12 11:49 → MEDS 05-14 11:00 → ENPENDDIS 05-18 13:12 → MEDS 05-18 14:16
PROVIDERS: Emergency Medicine; Internal Medicine; Internal Medicine Gastroenterology; ADMIT Family Medicine
PROC: 30233N1 Transfusion of Nonautologous Red Blood Cells into Peripheral Vein, Percutaneous Approach (ICD-10-PCS; 2019-05-13)
PROC: 0DB98ZX Excision of Duodenum, Via Natural or Artificial Opening Endoscopic, Diagnostic (ICD-10-PCS; principal; 2019-05-13 12:45)
DX: K85.20 Alcohol induced acute pancreatitis without necrosis or infection (principal); I13.0 Hypertensive heart and chronic kidney disease with heart failure and stage 1 through stage 4 chronic kidney disease, or unspecified chronic kidney disease; I50.32 Chronic diastolic (congestive) heart failure; K92.2 Gastrointestinal hemorrhage, unspecified; K92.1 Melena; K86.0 Alcohol-induced chronic pancreatitis; N18.3 Chronic kidney disease, stage 3 (moderate); E11.22 Type 2 diabetes mellitus with diabetic chronic kidney disease; K44.9 Diaphragmatic hernia without obstruction or gangrene; K29.80 Duodenitis without bleeding; D63.8 Anemia in other chronic diseases classified elsewhere; F41.8 Other specified anxiety disorders; M79.2 Neuralgia and neuritis, unspecified; E11.69 Type 2 diabetes mellitus with other specified complication; J44.9 Chronic obstructive pulmonary disease, unspecified; Z66 Do not resuscitate; E11.40 Type 2 diabetes mellitus with diabetic neuropathy, unspecified; G89.4 Chronic pain syndrome; F10.20 Alcohol dependence, uncomplicated; G47.33 Obstructive sleep apnea (adult) (pediatric); I25.10 Atherosclerotic heart disease of native coronary artery without angina pectoris; Z86.73 Personal history of transient ischemic attack (TIA), and cerebral infarction without residual deficits; E78.5 Hyperlipidemia, unspecified; Z87.891 Personal history of nicotine dependence; N40.1 Benign prostatic hyperplasia with lower urinary tract symptoms; E66.9 Obesity, unspecified; Z68.31 Body mass index [BMI] 31.0-31.9, adult
CPT/HCPCS: 36415; 36430; 73502; 74160; 74177; 76705; 80048; 80053; 81001; 82150; 82607; 82728; 82746; 82784; 82947; 83036; 83540; 83550; 83690; 83735; 84100; 84165; 84443; 84484; 85025; 85027; 86140; 86334; 86850; 86900; 86901; 86920; 88305; 88342; 93005; 93010; 93306; 94640; 94760; 96361; 96374-59; 96375; 97110; 97116; 97162; 97166; 97530; 97535; 99285-25; C9113; J1815; J1940; J2270; J2405; J2543; J2704; J3010; J3411; J3475; J7030; J7040; J7042; J7120; P9016; Q9967